=== PATIENT | male | born 1990 | race Caucasian/White ===

== ENCOUNTER 2016-10-05 08:30 | Emergency (ER) | payer SELFPAY ==
[~2016-10-05] VITALS: Ht 185.4 cm; Wt 84.8 kg
[2016-10-05 08:37] VITALS: BP 150/68
[2016-10-05] MEDS ORDERED: CEFTRIAXONE IM 250 MG VIAL. IM ONE (08:45)
[2016-10-05] MEDS ORDERED: AZITHROMYCIN 250 MG TABLET PO ONE (08:45)
--- NOTE | 2016-10-05 08:48 | PHYS DOC ---
Past Medical History Past Medical History: No Pertinent History Past Surgical History: No Surgical History Smokin Pack Per Day Alcohol Use: Occasionally Drug Use: Marijuana Adult General Chief Complaint Chief Complaint: PAIN ON URINATION HPI HPI Patient is a 26 year old male who presents with dysuria for 1.5 weeks. He has also had urinary frequency and urgency. He denies hematuria, penile discharge, testicular pain or swelling, abdominal pain, nausea, vomiting, or fever. He was recently informed that a former sexual partner tested positive for Chlamydia. He does not have a PCP. Review of Systems Review of Systems Constitutional: Denies fever or chills. [] GI: Denies abdominal pain, nausea, vomiting. [] : Denies penile discharge, hematuria or testicular pain or swelling. Reports dysuria, urinary frequency, and urinary urgency. Musculoskeletal: Denies back pain or joint pain. [] Integument: Denies rash or skin lesions. [] Neurologic: Denies headache, focal weakness or sensory changes. [] Current Medications Current Medications Current Medications Medications (Trade) Dose Ordered Sig/Julia Start Time Stop Time Status Last Admin Dose Admin Azithromycin (Zithromax) 1,000 mg 1X ONCE 10/05/16 08:45 10/05/16 08:47 DC 10/05/16 09:03 1,000 MG Ceftriaxone Sodium (Rocephin Im) 250 mg 1X ONCE 10/05/16 08:45 10/05/16 08:47 DC 10/05/16 09:03 250 MG Allergies Allergies Allergies Coded Allergies Type Severity Reaction Last Updated Verified shellfish derived Allergy Severe swelling 07/05/14 Yes venom-honey bee Allergy Severe swelling 07/05/14 Yes Physical Exam Physical Exam Constitutional: Well developed, well nourished, no acute distress, non-toxic appearance. [] HENT: Normocephalic, atraumatic, oropharynx moist. [] Eyes: PERRLA, EOMI, conjunctiva normal, no discharge. [] Neck: Normal range of motion, no tenderness, supple, no stridor. [] Cardiovascular: Heart rate regular rhythm, no murmur. [] Lungs & Thorax: Bilateral breath sounds clear to auscultation without wheezes, rales, or rhonchi. [] Abdomen: Bowel sounds normal, soft, no tenderness, no masses, no pulsatile masses. [] Skin: Warm, dry, no erythema, no rash. [] Neurologic: Alert and oriented X 3, normal motor function, normal sensory function, no focal deficits noted. [] Psychologic: Affect normal, judgement normal, mood normal. [] Current Patient Data Vital Signs Vital Signs Date Time Temp Pulse Resp B/P Pulse Ox O2 Delivery O2 Flow Rate FiO2 10/05/16 08:37 97.6 77 16 96 Room Air 97.6 EKG EKG [] Radiology/Procedures Radiology/Procedures [] Course & Med Decision Making Course & Med Decision Making Pertinent Labs and Imaging studies reviewed. (See chart for details) ED course: The patient presents with dysuria and report of exposure to chlamydia. He was treated empirically for gonorrhea and chlamydia while in the emergency department. He was instructed to abstain from intercourse for one week. He is informed that he will receive a phone call if his test is positive. Return precautions were discussed. He verbalizes understanding and agrees with plan. Dragon Disclaimer Dragon Disclaimer This electronic medical record was generated, in whole or in part, using a voice recognition dictation system. Departure Departure Impression: Primary Impression: Dysuria Additional Impression: STD exposure Disposition: 01 HOME, SELF-CARE Condition: STABLE Referrals: NON,STAFF (PCP) Patient Instructions: Sexually Transmitted Disease, [id number] Additional Instructions: You were treated for gonorrhea and chlamydia in the emergency department today. We will not have your results for 2-3 days. You will receive a phone call if your test is positive. Please do not have sex for 1 week to ensure that your treatment is complete. Return to the emergency department if you have any new or concerning symptoms. Problem Qualifiers BASHIR SMITH Oct 05, 2016 08:48
[2016-10-05 09:19] LABS: BILIRUBIN,URINE NEGATIVE (NEG); GLUCOSE,URINE NEGATIVE (NEG); NITRITE,URINE NEGATIVE (NEG); PH,URINE 6.5; PROTEIN,URINE NEGATIVE (NEG-TRACE); UROBILINOGEN,URINE 0.2 mg/dL (0.2 mg/dL)
[2016-10-05 09:35] LABS: BACTERIA,URINE 0 /HPF (0-FEW); RBC,URINE 0 /HPF (0-2); SQUAMOUS EPITHELIAL CELL,UR FEW /LPF; WBC,URINE 0 /HPF (0-4)
== END 2016-10-05 09:39 | disposition home or self-care (01) ==
LOC: ER 08:30
DX: R30.0 Dysuria (principal); Z20.2 Contact with and (suspected) exposure to infections with a predominantly sexual mode of transmission; F17.200 Nicotine dependence, unspecified, uncomplicated; F12.10 Cannabis abuse, uncomplicated; Z91.030 Bee allergy status; Z91.013 Allergy to seafood
CPT/HCPCS: 81001; 87491; 87591; 96372; 99284; J0696; Q0144

== ENCOUNTER → 2018-02-23 | Outpatient (CLI) | payer BC | END | disposition home or self-care (01) | LOC: KCIC US 08:04 | DX: R16.0 Hepatomegaly, not elsewhere classified (principal); Z87.891 Personal history of nicotine dependence | CPT/HCPCS: 76700 ==

== ENCOUNTER → 2018-03-28 | Outpatient (CLI) | payer BC ==
[2018-03-28] MEDS: SINCALIDE IV (09:45)
[2018-03-28] MEDS: NORMAL SALINE IV (09:45)
== END | disposition home or self-care (01) ==
LOC: NM 08:47
DX: R10.9 Unspecified abdominal pain (principal); Z87.891 Personal history of nicotine dependence
CPT/HCPCS: 78226; 96374; 96375; A9537; J2805

== ENCOUNTER → 2018-04-11 | Outpatient (CLI) | payer BC ==
[~2018-04-11] MED LIST: BARIUM SULFATE 60% 355 ML SUSP PO ONE
--- NOTE | 2018-04-11 11:23 | RAD ---
CLINICAL HISTORY: UPPER ABDOMINAL PAIN COMPARISON: None TECHNIQUE: Fluoroscopically-guided small bowel follow-through performed with barium contrast FINDINGS: Geographic Information Systems Analyst: Initial plain film of the abdomen reveals moderate colonic stool content. No abnormal calcifications are seen. The stomach is normal in appearance. The serial films of barium traversing the small bowel to the cecum reveal a normal transit time. Contrast material is present in the colon after 90 minutes. Small bowel mucosal pattern and caliber is normal throughout. There is no evidence of obstruction or filling defect. The terminal ileum appears normal. Normal transit time of 90 minutes. Fluoroscopy time: 0.8 minutes. Fluoroscopy spot images: 4 IMPRESSION: Normal small bowel follow-through study Electronically signed by: Addison Rose MD (04/11/2018 11:19 AM) [facility]
== END | disposition home or self-care (01) ==
LOC: RAD 07:15
PROVIDERS: ATTEND Psychiatry & Neurology Neurology
DX: R10.10 Upper abdominal pain, unspecified (principal); R10.13 Epigastric pain; Z87.891 Personal history of nicotine dependence
CPT/HCPCS: 74250